=== PATIENT | male | born 1965 | race Caucasian/White ===

== ENCOUNTER → 2018-03-11 | Outpatient (CLI) | payer OTHER | LOC: BMCIMAGING 14:10 | PROVIDERS: ATTEND Internal Medicine | DX: J18.1 Lobar pneumonia, unspecified organism (principal) ==

== ENCOUNTER → 2018-05-22 | Outpatient (CLI) | payer OTHER | LOC: CIMAGING 16:07 | PROVIDERS: ATTEND Internal Medicine | DX: R50.9 Fever, unspecified (principal); R06.09 Other forms of dyspnea; Z85.038 Personal history of other malignant neoplasm of large intestine; I51.7 Cardiomegaly; Z87.01 Personal history of pneumonia (recurrent) | CPT/HCPCS: 71046-PO ==

== ENCOUNTER 2018-06-05 12:10 | Day surgery (SDC) | payer OTHER ==
--- NOTE | 2018-06-05 07:50 | PDPROPOC ---
Sedation Plan of Care Sedation Plan of Care: vital signs stable, mental status noted, patient educated of risks, benefits, alternatives, patient can tolerate sedation ASA Classification: ASA 1 Planned drugs: fentanyl, midazolam Mallampati Score: Class 2 Mallampati Reference Image: Patient passed 3-3-2 rule?: Yes
--- NOTE | 2018-06-05 07:50 | PDHPUP ---
History & Physical Update H&P update statement: This history and physical update is based on an assessment of the patient which was completed after admission or registration (within 24 hours), but prior to the surgery/procedure. H&P update: H&P reviewed & patient examined, no change in patient's condition since H&P completed
[2018-06-05] MEDS ORDERED: ALBUTEROL 3 ML DEYVIAL IH ONE (12:25)
[2018-06-05] MEDS ORDERED: NS 500 ML IV ONE (12:25)
[2018-06-05] MEDS ORDERED: LIDOCAINE 1% 2 ML INJ ID PRN (12:25)
[2018-06-05] MEDS ORDERED: MIDAZOLAM 2 MG/2 ML VIAL ONE ×2 (13:26→13:27)
[2018-06-05] MEDS ORDERED: fentaNYL 100 MCG/2 ML INJ ONE (13:26)
[2018-06-05] MEDS ORDERED: EPINEPHrine 1 MG/ML INJ ONE (13:26)
[2018-06-05] MEDS ORDERED: BENZOCAINE UNIT DOSE SPRAY HURRICAINE MM ONE (13:26)
[2018-06-05] MEDS ORDERED: LIDOCAINE 1% 300 MG/30 ML SDV ONE (13:26)
[2018-06-05] MEDS ORDERED: LIDOCAINE 2% JELLY 6 ML TOPICAL SYR TP ONE (13:45)
--- NOTE | 2018-06-05 14:33 | BVPULMO ---
[facility] Surgical Services- Pulmonology Patient Name: Zack Martell Procedure Date: 06/05/2018 1:34 PM Patient Type: Outpatient Attending MD/ER Physician: Bryn Goode MD Procedure: Bronchoscopy Indications: Diagnostic bronchoalveolar lavage Providers: Bryn Goode MD Medicines: Lidocaine 1% applied to cords 2 mL, Fentanyl 75 mcg IV, Midazolam 3 mg mg IV Complications: No immediate complications Procedure: After informed consent, a time out was performed. N95 masks were worn, and the procedure was done in a negative pressure room. The patient was given appropria te topical anesthesia and intravenous sedation. The fiberopic bronchoscope was pas sed via a bite block orally into the larynx and subsequently into the lower trachea bronchial tree. Throughout the procedure, the patient's blood pressure, pulse, and oxygen saturations were monitored continuously. The Bronchoscope (Video) was introduced through the mouth and advanced to the tracheobronchial tree of both lungs. The procedure was accomplished without difficulty. The patient tolerated the procedure well. Findings: Specific locations: The following were directly visualized, and are normal: lar ynx, vocal cord motion, trachea, sherrie, left mainstem bronchus, right mainstem bron chus, bronchus intermedius, left upper lobe including subsegments,left lower lobe including subsegments, right upper lobe including subsegments, right middle lob e including subsegments, right lower lober including subsegments. Bronchoalveolar lavage was performed in the RLL medial basal segment (B7) of th e lung. 120 mL of fluid were instilled. 60 mL were returned. The return was cloud y. There were no mucoid plugs in the return fluid. Multiple specimens were obtaine d and pooled into one specimen, which was sent for analysis. Washings were obtained. The return was cloudy. Post Op Diagnosis: - Bronchoalveolar lavage - Bronchoalveolar lavage was performed. - Washings were obtained. - The airway examination was normal. Estimated Blood Loss: Estimated blood loss: none. Recommendation: - The patient will be observed post-procedure, until all discharge criteria are met. - Follow up in clinic in 2 weeks. - The patient was advised to call or return to the clinic if there are signs or symptoms suggesting a complication/adverse reaction from the procedure. Bryn Goode MD Bryn Goode MD 06/05/2018 2:33:17 PM This report has been signed electronicallyBryn Goode MD Number of Addenda: 0 Note Initiated On: 06/05/2018 1:34 PM [email or web address]
[2018-06-05 15:41] VITALS: BP 97/66
== END 2018-06-05 15:40 | disposition home or self-care (01) ==
LOC: FSGY 12:10
PROVIDERS: ATTEND Internal Medicine Critical Care Medicine
PROC: 0B9F8ZX Drainage of Right Lower Lung Lobe, Via Natural or Artificial Opening Endoscopic, Diagnostic (ICD-10-PCS; principal; 2018-06-05 13:30)
DX: R06.02 Shortness of breath (principal); Z85.038 Personal history of other malignant neoplasm of large intestine; Z85.05 Personal history of malignant neoplasm of liver; Z85.828 Personal history of other malignant neoplasm of skin
CPT/HCPCS: J0171; J2250; J3010; J7613